=== PATIENT | female | born 1995 | race Caucasian/White ===

== ENCOUNTER 2017-01-15 12:17 | Emergency (ER) | payer OTHER ==
[~2017-01-15] VITALS: Wt 64.0 kg
[2017-01-15] MEDS ORDERED: IBUP-1542 PO (13:44)
[2017-01-15] MEDS ORDERED: DOXY100T20 PO (13:44)
[2017-01-15] MEDS ORDERED: LIDO20SO19 MM (13:44)
[2017-01-15] MEDS ORDERED: [UNRECOGNIZED DRUG - OTHER] (13:44)
--- NOTE | 2017-01-15 14:21 | ERD ---
ER Documentation Chief Complaint Chief Complaint mouth pain s/p sexual activity, per pt HPI 21-year-old female comes in with pain in the roof of her mouth that started after she had performed oral sex on a female 2 days ago. Patient states that it started gradually and is worse that is aching diffuse on the roof of her mouth and is described as sharp, burning. That there was no trauma involved. She denies sore throat, fevers, chills, trouble swallowing or voice changes. ROS All systems reviewed and are negative except as per history of present illness. Medications Home Meds Active Scripts Lidocaine (Lidocaine Viscous) 100 Ml Soln, 10 ML MM TID, #100 Prov:YOEL POSADAS PA-C 01/15/17 [viscous li] No Conflict Check Prov:YOEL POSADAS PA-C 01/15/17 Doxycycline Hyclate* (Doxycycline Hyclate*) 100 Mg Tablet.dr, 100 MG PO BID for 10 Days, TAB Prov:YOEL POSADAS PA-C 01/15/17 Ibuprofen* (Motrin*) 600 Mg Tab, 600 MG PO Q6, #30 TAB Prov:YOEL POSADAS PA-C 01/15/17 PMhx/Soc Medical and Surgical Hx: pt denies Medical Hx, pt denies Surgical Hx Hx Alcohol Use: No Hx Substance Use: No Hx Tobacco Use: No Physical Exam Vitals Vital Signs Date Time Temp Pulse Resp B/P Pulse Ox O2 Delivery O2 Flow Rate FiO2 01/15/17 12:21 98.4 89 20 110/57 96 Physical Exam General: Well-developed, well-nourished. The patient appears in no acute distress. HEENT: Head is normocephalic, atraumatic. No scleral icterus. [place] is swollen, there is tenderness to the hard palate, no vesicular lesions, it is slightly erythematous. Oropharynx is clear Neck: Supple. Nontender. No Lymphadenopathy. Lungs: Clear to auscultation. Normal air movement. Heart: Regular rate and rhythm. S1 and S2 are normal. No murmurs, gallops, or rubs. Abdomen: Nondistended. Extremities: No clubbing or cyanosis. Moving extremities x 4. No weakness. Neurologic: Alert and oriented 3. No focal deficits. Normal speech and gait. Skin: Normal turgor. No rash or lesions. Results 24 hrs Current Medications Medications (Trade) Dose Ordered Sig/Chi Route PRN Reason Start Time Stop Time Status Last Admin Dose Admin Ibuprofen (Motrin) 600 mg ONCE ONCE PO 01/15/17 14:30 01/15/17 14:31 01/15/17 14:07 Procedures/MDM ER course: She was given ibuprofen for pain. A culture was taken of the hard palate. Medical decision makin-year-old female comes in with stomatitis of the mouth, she states this occurred after she had performed oral sex on a female partner 2 days ago. Consider gonorrhea, chlamydia, trichomonas, HSV. The patient had a culture done, she is wondering if she would be able to get an annual examination, and full STD workup, [facility]. I have asked her to keep an eye out for vesicular lesions, or ulcerative lesions, as this may require further evaluation or treatment, as he also considered HSV, versus syphilis. Patient will be treated with ibuprofen, viscous lidocaine and doxycycline. Departure Diagnosis: Primary Impression: Oral pain Condition: Good Patient Instructions: Gingivo - Stomatitis (Child) Referrals: [facility] YOU HAVE RECEIVED A MEDICAL SCREENING EXAM AND THE RESULTS INDICATE THAT YOU DO NOT HAVE A CONDITION THAT REQUIRES URGENT TREATMENT IN THE EMERGENCY DEPARTMENT. FURTHER EVALUATION AND TREATMENT OF YOUR CONDITION CAN WAIT UNTIL YOU ARE SEEN IN YOUR DOCTORS OFFICE WITHIN THE NEXT 1-2 DAYS. IT IS YOUR RESPONSIBILITY TO MAKE AN APPOINTMENT FOR FOLOW-UP CARE. IF YOU HAVE A PRIMARY DOCTOR --you should call your primary doctor and schedule an appointment IF YOU DO NOT HAVE A PRIMARY DOCTOR YOU CAN CALL OUR PHYSICIAN REFERRAL HOTLINE AT IF YOU CAN NOT AFFORD TO SEE A PHYSICIAN YOU CAN CHOSE FROM THE FOLLOWING [facility] [address] [facility] [address] [facility]. [facility] [address] [facility] [address] [facility] [address] [facility]. [facility]. [address] [facility] YOU HAVE RECEIVED A MEDICAL SCREENING EXAM AND THE RESULTS INDICATE THAT YOU DO NOT HAVE A CONDITION THAT REQUIRES URGENT TREATMENT IN THE EMERGENCY DEPARTMENT. FURTHER EVALUATION AND TREATMENT OF YOUR CONDITION CAN WAIT UNTIL YOU ARE SEEN IN YOUR DOCTORS OFFICE WITHIN THE NEXT 1-2 DAYS. IT IS YOUR RESPONSIBILITY TO MAKE AN APPOINTMENT FOR FOLOW-UP CARE. IF YOU HAVE A PRIMARY DOCTOR --you should call your primary doctor and schedule and appointment IF YOU DO NOT HAVE A PRIMARY DOCTOR YOU CAN CALL OUR PHYSICIAN REFERRAL HOTLINE AT . IF YOU CAN NOT AFFORD TO SEE A PHYSICIAN YOU CAN CHOSE FROM THE FOLLOWING [facility] INSTITUTIONS: [facility] [address] [place] [address] [facility] [address] [place] [address] LAC + [facility] [address] [place] [address] [facility] URGENT CARE[facility]SPECIAL[facility] Hours: 8:00 am - 5:00 pm Additional Instructions: Call your primary care doctor TOMORROW for an appointment during the next 1-2 days.See the doctor sooner or return here if your condition worsens before your appointment time. YOEL POSADAS PA-C Jan 15, 2017 14:21
--- NOTE | 2017-01-15 14:21 | ERD ---
ER Documentation Chief Complaint Chief Complaint mouth pain s/p sexual activity, per pt HPI 21-year-old female comes in with pain in the roof of her mouth that started after she had performed oral sex on a female 2 days ago. Patient states that it started gradually and is worse that is aching diffuse on the roof of her mouth and is described as sharp, burning. That there was no trauma involved. She denies sore throat, fevers, chills, trouble swallowing or voice changes. ROS All systems reviewed and are negative except as per history of present illness. Medications Home Meds Active Scripts Lidocaine (Lidocaine Viscous) 100 Ml Soln, 10 ML MM TID, #100 Prov:YOEL POSADAS PA-C 01/15/17 [viscous li] No Conflict Check Prov:YOEL POSADAS PA-C 01/15/17 Doxycycline Hyclate* (Doxycycline Hyclate*) 100 Mg Tablet.dr, 100 MG PO BID for 10 Days, TAB Prov:YOEL POSADAS PA-C 01/15/17 Ibuprofen* (Motrin*) 600 Mg Tab, 600 MG PO Q6, #30 TAB Prov:YOEL POSADAS PA-C 01/15/17 PMhx/Soc Medical and Surgical Hx: pt denies Medical Hx, pt denies Surgical Hx Hx Alcohol Use: No Hx Substance Use: No Hx Tobacco Use: No Physical Exam Vitals Vital Signs Date Time Temp Pulse Resp B/P Pulse Ox O2 Delivery O2 Flow Rate FiO2 01/15/17 12:21 98.4 89 20 110/57 96 Physical Exam General: Well-developed, well-nourished. The patient appears in no acute distress. HEENT: Head is normocephalic, atraumatic. No scleral icterus. [place] is swollen, there is tenderness to the hard palate, no vesicular lesions, it is slightly erythematous. Oropharynx is clear Neck: Supple. Nontender. No Lymphadenopathy. Lungs: Clear to auscultation. Normal air movement. Heart: Regular rate and rhythm. S1 and S2 are normal. No murmurs, gallops, or rubs. Abdomen: Nondistended. Extremities: No clubbing or cyanosis. Moving extremities x 4. No weakness. Neurologic: Alert and oriented 3. No focal deficits. Normal speech and gait. Skin: Normal turgor. No rash or lesions. Results 24 hrs Current Medications Medications (Trade) Dose Ordered Sig/Chi Route PRN Reason Start Time Stop Time Status Last Admin Dose Admin Ibuprofen (Motrin) 600 mg ONCE ONCE PO 01/15/17 14:30 01/15/17 14:31 01/15/17 14:07 Procedures/MDM ER course: She was given ibuprofen for pain. A culture was taken of the hard palate. Medical decision makin-year-old female comes in with stomatitis of the mouth, she states this occurred after she had performed oral sex on a female partner 2 days ago. Consider gonorrhea, chlamydia, trichomonas, HSV. The patient had a culture done, she is wondering if she would be able to get an annual examination, and full STD workup, [facility]. I have asked her to keep an eye out for vesicular lesions, or ulcerative lesions, as this may require further evaluation or treatment, as he also considered HSV, versus syphilis. Patient will be treated with ibuprofen, viscous lidocaine and doxycycline. Departure Diagnosis: Primary Impression: Oral pain Condition: Good Patient Instructions: Gingivo - Stomatitis (Child) Referrals: [facility] YOU HAVE RECEIVED A MEDICAL SCREENING EXAM AND THE RESULTS INDICATE THAT YOU DO NOT HAVE A CONDITION THAT REQUIRES URGENT TREATMENT IN THE EMERGENCY DEPARTMENT. FURTHER EVALUATION AND TREATMENT OF YOUR CONDITION CAN WAIT UNTIL YOU ARE SEEN IN YOUR DOCTORS OFFICE WITHIN THE NEXT 1-2 DAYS. IT IS YOUR RESPONSIBILITY TO MAKE AN APPOINTMENT FOR FOLOW-UP CARE. IF YOU HAVE A PRIMARY DOCTOR --you should call your primary doctor and schedule an appointment IF YOU DO NOT HAVE A PRIMARY DOCTOR YOU CAN CALL OUR PHYSICIAN REFERRAL HOTLINE AT IF YOU CAN NOT AFFORD TO SEE A PHYSICIAN YOU CAN CHOSE FROM THE FOLLOWING [facility] [address] [facility] [facility] [address] [facility]. [facility] [address] [facility] [address] [facility] [address] [facility]. [facility]. [address] [facility] YOU HAVE RECEIVED A MEDICAL SCREENING EXAM AND THE RESULTS INDICATE THAT YOU DO NOT HAVE A CONDITION THAT REQUIRES URGENT TREATMENT IN THE EMERGENCY DEPARTMENT. FURTHER EVALUATION AND TREATMENT OF YOUR CONDITION CAN WAIT UNTIL YOU ARE SEEN IN YOUR DOCTORS OFFICE WITHIN THE NEXT 1-2 DAYS. IT IS YOUR RESPONSIBILITY TO MAKE AN APPOINTMENT FOR FOLOW-UP CARE. IF YOU HAVE A PRIMARY DOCTOR --you should call your primary doctor and schedule and appointment IF YOU DO NOT HAVE A PRIMARY DOCTOR YOU CAN CALL OUR PHYSICIAN REFERRAL HOTLINE AT . IF YOU CAN NOT AFFORD TO SEE A PHYSICIAN YOU CAN CHOSE FROM THE FOLLOWING [facility] INSTITUTIONS: [facility] [address] [place] [address] [facility] [address] [place] [address] LAC + [facility] [address] [place] [address] [facility] URGENT CARE/SPECIALTIES [facility] Hours: 8:00 am - 5:00 pm Additional Instructions: Call your primary care doctor TOMORROW for an appointment during the next 1-2 days.See the doctor sooner or return here if your condition worsens before your appointment time. YOEL POSADAS PA-C Jan 15, 2017 14:21
--- NOTE | 2017-01-15 14:21 | ERD ---
ER Documentation Chief Complaint Chief Complaint mouth pain s/p sexual activity, per pt HPI 21-year-old female comes in with pain in the roof of her mouth that started after she had performed oral sex on a female 2 days ago. Patient states that it started gradually and is worse that is aching diffuse on the roof of her mouth and is described as sharp, burning. That there was no trauma involved. She denies sore throat, fevers, chills, trouble swallowing or voice changes. ROS All systems reviewed and are negative except as per history of present illness. Medications Home Meds Active Scripts Lidocaine (Lidocaine Viscous) 100 Ml Soln, 10 ML MM TID, #100 Prov:YOEL POSADAS PA-C 01/15/17 [viscous li] No Conflict Check Prov:YOEL POSADAS PA-C 01/15/17 Doxycycline Hyclate* (Doxycycline Hyclate*) 100 Mg Tablet.dr, 100 MG PO BID for 10 Days, TAB Prov:YOEL POSADAS PA-C 01/15/17 Ibuprofen* (Motrin*) 600 Mg Tab, 600 MG PO Q6, #30 TAB Prov:YOEL POSADAS PA-C 01/15/17 PMhx/Soc Medical and Surgical Hx: pt denies Medical Hx, pt denies Surgical Hx Hx Alcohol Use: No Hx Substance Use: No Hx Tobacco Use: No Physical Exam Vitals Vital Signs Date Time Temp Pulse Resp B/P Pulse Ox O2 Delivery O2 Flow Rate FiO2 01/15/17 12:21 98.4 89 20 110/57 96 Physical Exam General: Well-developed, well-nourished. The patient appears in no acute distress. HEENT: Head is normocephalic, atraumatic. No scleral icterus. [place] is swollen, there is tenderness to the hard palate, no vesicular lesions, it is slightly erythematous. Oropharynx is clear Neck: Supple. Nontender. No Lymphadenopathy. Lungs: Clear to auscultation. Normal air movement. Heart: Regular rate and rhythm. S1 and S2 are normal. No murmurs, gallops, or rubs. Abdomen: Nondistended. Extremities: No clubbing or cyanosis. Moving extremities x 4. No weakness. Neurologic: Alert and oriented 3. No focal deficits. Normal speech and gait. Skin: Normal turgor. No rash or lesions. Results 24 hrs Current Medications Medications (Trade) Dose Ordered Sig/Chi Route PRN Reason Start Time Stop Time Status Last Admin Dose Admin Ibuprofen (Motrin) 600 mg ONCE ONCE PO 01/15/17 14:30 01/15/17 14:31 01/15/17 14:07 Procedures/MDM ER course: She was given ibuprofen for pain. A culture was taken of the hard palate. Medical decision makin-year-old female comes in with stomatitis of the mouth, she states this occurred after she had performed oral sex on a female partner 2 days ago. Consider gonorrhea, chlamydia, trichomonas, HSV. The patient had a culture done, she is wondering if she would be able to get an annual examination, and full STD workup, [facility]. I have asked her to keep an eye out for vesicular lesions, or ulcerative lesions, as this may require further evaluation or treatment, as he also considered HSV, versus syphilis. Patient will be treated with ibuprofen, viscous lidocaine and doxycycline. Departure Diagnosis: Primary Impression: Oral pain Condition: Good Patient Instructions: Gingivo - Stomatitis (Child) Referrals: [facility] YOU HAVE RECEIVED A MEDICAL SCREENING EXAM AND THE RESULTS INDICATE THAT YOU DO NOT HAVE A CONDITION THAT REQUIRES URGENT TREATMENT IN THE EMERGENCY DEPARTMENT. FURTHER EVALUATION AND TREATMENT OF YOUR CONDITION CAN WAIT UNTIL YOU ARE SEEN IN YOUR DOCTORS OFFICE WITHIN THE NEXT 1-2 DAYS. IT IS YOUR RESPONSIBILITY TO MAKE AN APPOINTMENT FOR FOLOW-UP CARE. IF YOU HAVE A PRIMARY DOCTOR --you should call your primary doctor and schedule an appointment IF YOU DO NOT HAVE A PRIMARY DOCTOR YOU CAN CALL OUR PHYSICIAN REFERRAL HOTLINE AT IF YOU CAN NOT AFFORD TO SEE A PHYSICIAN YOU CAN CHOSE FROM THE FOLLOWING [facility] [address] [facility] [address] [facility] [address] [facility] [address] [facility] [facility] [address] [facility] [address] [facility] [address] [facility]. [facility]. [address] [facility] YOU HAVE RECEIVED A MEDICAL SCREENING EXAM AND THE RESULTS INDICATE THAT YOU DO NOT HAVE A CONDITION THAT REQUIRES URGENT TREATMENT IN THE EMERGENCY DEPARTMENT. FURTHER EVALUATION AND TREATMENT OF YOUR CONDITION CAN WAIT UNTIL YOU ARE SEEN IN YOUR DOCTORS OFFICE WITHIN THE NEXT 1-2 DAYS. IT IS YOUR RESPONSIBILITY TO MAKE AN APPOINTMENT FOR FOLOW-UP CARE. IF YOU HAVE A PRIMARY DOCTOR --you should call your primary doctor and schedule and appointment IF YOU DO NOT HAVE A PRIMARY DOCTOR YOU CAN CALL OUR PHYSICIAN REFERRAL HOTLINE AT . IF YOU CAN NOT AFFORD TO SEE A PHYSICIAN YOU CAN CHOSE FROM THE FOLLOWING [facility] INSTITUTIONS: [facility] [address] [place] [address] [facility] [address] [place] [address] LAC + [facility] [address] [place] [address] [facility] URGENT CARE/SPECIALTIES [facility] Hours: 8:00 am - 5:00 pm Additional Instructions: Call your primary care doctor TOMORROW for an appointment during the next 1-2 days.See the doctor sooner or return here if your condition worsens before your appointment time. YOEL POSADAS PA-C Jan 15, 2017 14:21
[2017-01-15] MEDS ORDERED: IBUPROFEN 600 MG TAB PO ONE (14:30)
== END 2017-01-15 14:08 | disposition home or self-care (01) ==
LOC: FTE 12:17
DX: K13.79 Other lesions of oral mucosa (principal)
CPT/HCPCS: 99284